=== PATIENT | male | born 1975 | race Hispanic/Latino ===

== ENCOUNTER 2019-03-15 06:53 | Emergency (ER) | payer BC ==
--- NOTE | 2019-03-15 07:51 | Emergency Department Report ---
ED Rash HPI - HPI Chief Complaint: Skin Rash Stated Complaint: POSS SCABIES Time Seen by Provider: 03/15/19 07:16 Duration: 2 Days Location: Upper Extremities, Lower Extremities Suspected Cause: Insect Rash Symptoms: Yes Itching, No Facial Swelling, No Tongue/Oral Swelling, No Breathing Difficulties, No Choking Sensation, No Wheezing/Dyspnea, No Peeling, No Blistering, No Fever, No Lightheaded, No Malaise, No Myalgias Severity: moderate Other History: This is a 43-year-old male who presents to the emergenc y room with a pruritic rash to bilateral lower extremities and bilateral upper extremities for 2 days. Patient states his stepson came home and states he was diagnosed with scabies. Patient reports symptoms worse at night and reports feeling a sensation of something crawling under skin. ED Review of Systems ROS: Stated complaint: POSS SCABIES Other details as noted in HPI Constitutional: denies: chills, fever Respiratory: denies: cough, shortness of breath, wheezing Cardiovascular: denies: chest pain, palpitations Gastrointestinal: denies: abdominal pain, nausea, diarrhea Skin: rash, pruritus. denies: lesions Neurological: denies: headache, weakness, paresthesias Psychiatric: denies: anxiety, depression ED Past Medical Hx - Past Medical History Previous Medical History?: No - Surgical History Past Surgical History?: Yes Hx Appendectomy: Yes Additional Surgical History: right knee - Social History Smoking Status: Current Every Day Smoker Substance Use Type: None - Medications Home Medications: Home Medications Medication Instructions Recorded Confirmed Last Taken Type Permethrin [Nix Complete] 324.86 ml MC ONCE #1 combo..pkg 03/15/19 Unknown Rx diphenhydrAMINE [Benadryl CAP] 25 mg PO Q6HR PRN #15 capsule 03/15/19 Unknown Rx methylPREDNISolone [Medrol 4MG 4 mg PO DAILY #1 tab.ds.pk 03/15/19 Unknown Rx DOSEPAK (21 tabs)] Rash Exam - Exam General: Vital signs noted. No distress. Alert and acting appropriately. HEENT: No Periorbital Edema, No Conjuctival Injection, No Chemosis, No Perioral Edema, No Tongue Edema, No Uvular Edema, No Compromised Airway, No Drooling Lungs: Yes Good Air Exchange (Normal Breath Sounds), No Wheezes, No Ronchi, No Stridor, No Cough, No Labored Respirations, No Retractions, No Use of Accessory Muscles, No Other Abnormal Lung Sounds Heart: Yes Regular, No Murmur Skin: Yes Other (linear erythematous papules to bilateral posterior thighs), No Urticarial Rash, No Maculopapular Rash, No Morbilliform rash, No Bulla(e), No Excoriations, No Weeping, No Tenderness, No Erythema, No Edema, No Encrustations ED Course Vital Signs 03/15/19 07:01 Temperature 98.6 F Pulse Rate 114 H Respiratory 16 Rate Blood Pressure 186/114 [Right] O2 Sat by Pulse 100 Oximetry Vital Signs 03/15/19 03/15/19 07:01 07:59 Temperature 98.6 F Pulse Rate 114 H 97 H Respiratory 16 16 Rate Blood Pressure 186/114 152/95 [Right] O2 Sat by Pulse 100 99 Oximetry ED Medical Decision Making - Medical Decision Making This is a 43-year-old male with a pruritic rash to bilateral upper extremity and lower extremity. Patient examined by me and stable. No distress noted. Physical assessment susceptible of scabies rash. Start permetharin, medrol pack, and benadryl. Discussed plan with patient to clean home and bag items. Instructed to follow up with PCP if symptoms worsen. Critical care attestation.: If time is entered above; I have spent that time in minutes in the direct care of this critically ill patient, excluding procedure time. ED Disposition Clinical Impression: Pruritic rash, Scabies Disposition: - TO HOME OR SELFCARE Is pt being admited?: No Does the pt Need Aspirin: No Condition: Stable Instructions: Scabies (ED) Additional Instructions: Wash all linens underclothes and hot water or back pokey items and keep seal for 2 weeks. You may feel itching for 1-2 weeks after clearing. Prescriptions: diphenhydrAMINE [Benadryl CAP] 25 mg PO Q6HR PRN #15 capsule PRN Reason: Itching methylPREDNISolone [Medrol 4MG DOSEPAK (21 tabs)] 4 mg PO DAILY #1 tab.ds.pk Permethrin [Nix Complete] 324.86 ml MC ONCE #1 combo..pkg Referrals: [facility] [Outside] - 3-5 Days [facility] [Outside] - 3-5 Days [facility] [Outside] - 3-5 Days Forms: Work/School Release Form(ED) Time of Disposition: 08:04
[2019-03-15 08:00] VITALS: BP 152/95
== END 2019-03-15 08:09 | disposition home or self-care (01) ==
LOC: ED 06:53
DX: B86 Scabies (principal); F17.200 Nicotine dependence, unspecified, uncomplicated; Z90.49 Acquired absence of other specified parts of digestive tract; Z79.899 Other long term (current) drug therapy
CPT/HCPCS: 99282